=== PATIENT | female | born 1965 | race Two or more races ===

== ENCOUNTER → 2017-07-05 | Emergency (ER) | payer OTHER ==
[~2017-07-05] VITALS: Ht 165.1 cm; Wt 88.9 kg
[~2017-07-05] MED LIST: ENALAPRIL MALEA20 MG PO; PROTONIX20 MG PO
== END | disposition home or self-care (01) ==
LOC: ER 22:58
DX: S00.83XA Contusion of other part of head, initial encounter (principal); S90.02XA Contusion of left ankle, initial encounter; S80.01XA Contusion of right knee, initial encounter; W18.39XA Other fall on same level, initial encounter; Y93.89 Activity, other specified; Y92.89 Other specified places as the place of occurrence of the external cause; Y99.8 Other external cause status